=== PATIENT | female | born 1980 | race Caucasian/White ===

== ENCOUNTER → 2018-01-24 | Outpatient (CLI) | payer OTHER ==
--- NOTE | 2018-01-24 12:29 | Diagnostic Imaging Report ---
CLINICAL INDICATION: Patient with enlarged thyroid gland. COMPARISONS: None. FINDINGS: THYROID NODULES: There is a 0.5 cm x 1.0 cm x 0.5 cm heterogeneous, predominantly hypoechoic oval-shaped area seen posterior to the superior aspect of the left thyroid gland. It appears as though this area is outside of the left thyroid gland. There is no significant central Doppler flow. There is a 1.1 cm x 1.2 cm x 0.8 cm lobulated hypoechoic area seen posterior to the medial mid right thyroid gland. There is no significant central Doppler flow. There is no nodule seen within the thyroid gland parenchyma. THYROID GLAND: The thyroid gland has normal size, shape and echogenicity. The right lobe measures 4.1 cm x 1.1 cm x 1.8 cm and the left lobe measures 3.8 cm x 1.0 cm x 1.4 cm in their three dimensions. ISTHMUS: The isthmus is unremarkable and measures grossly 2 mm in thickness. IMPRESSION: 1: There are two heterogeneous hypoechoic areas seen posterior to the right and left thyroid gland which demonstrate no significant central Doppler flow. These areas are nonspecific, but appear nonvascular given that there is no Doppler flow associated with them. These findings may represent complex cystic lesions versus lymphatic malformations/lymphangiomas. Abnormal-appearing parathyroid gland lesions are suspected to be unlikely especially on the right, but left side cannot be completely excluded. Lymph nodes are suspected to be less likely. MRI of the neck soft tissue with and without IV contrast is suggested for further evaluation. 2: There is no definite thyroid gland nodule seen. The thyroid gland is unremarkable as visualized. Dictated by: Dictated on workstation # [id number]
== END ==
LOC: RAD 08:41
PROVIDERS: ATTEND Obstetrics & Gynecology
DX: E04.9 Nontoxic goiter, unspecified (principal)
CPT/HCPCS: 76536

== ENCOUNTER → 2018-01-29 | Outpatient (CLI) | payer OTHER ==
[~2018-01-29] MED LIST: GADOBUTROL 10 MMOL/10 ML (GADAVIST) VIAL IV ONE
--- NOTE | 2018-01-29 17:14 | Diagnostic Imaging Report ---
CLINICAL INDICATION: Patient is feeling thickness in her neck area, trouble swallowing. Patient has recent sonogram of the thyroid gland. EXAM: MRI of the neck performed without and with 8 cc of Gadavist IV contrast. Sequences include axial T1, axial T2, axial T1 fat-sat, coronal T1, coronal T2 fat-sat, sagittal T1 fat-sat, axial T2 fat-sat, coronal T1 fat-sat post IV contrast, axial T1 fat-sat post IV contrast, and sagittal T1 fat-sat post IV contrast. COMPARISON: Ultrasound of the thyroid gland dated 01/24/2018. FINDINGS: Evaluation of the thyroid area of concern posteriorly and bilaterally shows multiple lobulated vascular structures which extend down the neck. These are high on T2 and slightly high on T1, likely related to slow flow which is common to veins. These likely represent venous structures and are likely incidental and inconsequential. There is no other significant abnormality in the region. There is no solid enhancing neck mass seen. The thyroid gland shows no other significant abnormality. The nasopharynx, oropharynx, hypopharynx, and laryngeal soft tissue structures are unremarkable and symmetric. The oral cavity, tongue, and submandibular space is unremarkable. There is no neck lymphadenopathy. The bilateral salivary glands are unremarkable. The visualized neck arterial major vascular structures show no significant abnormality. Limited visualization of the intracranial structures are unremarkable. There is mild mucosal thickening involving both maxillary sinuses and ethmoid sinus. Visualized upper lung felix and mediastinum are grossly unremarkable. There is mild anterior spurring of the cervical spine, which is otherwise unremarkable. IMPRESSION: 1: There are venous structures seen posterior to the bilateral thyroid gland region which likely correlates to the areas of concern on the prior ultrasound. There is no solid mass or other area of concern seen. Thyroid gland shows no abnormality. 2: The remainder of the MRI of the neck soft tissue is unremarkable with no mass, lymphadenopathy, or fluid collections. Dictated by: Dictated on workstation # [id number]
== END ==
LOC: RAD 13:42
PROVIDERS: ATTEND Obstetrics & Gynecology
DX: R94.6 Abnormal results of thyroid function studies (principal); E04.2 Nontoxic multinodular goiter
CPT/HCPCS: 70543

== ENCOUNTER → 2021-08-29 | Outpatient (CLI) | payer OTHER ==
--- NOTE | 2021-08-30 13:09 | Diagnostic Imaging Report ---
Indication: Routine screening. Comparison is made with prior mammogram on the left from 06/18/2013. 2-D and 3-D bilateral screening mammography was performed with CAD. CAD is utilized. The current study was also evaluated with a Computer Aided Detection (CAD) system. Both breasts are heterogeneously dense, limiting the sensitivity of mammography. There are scattered benign calcifications bilaterally. There is a somewhat lobulated but circumscribed lesion lateral to the nipple line on the CC view approximately 8 cm from the nipple. This is not well-seen on the MLO view. Ultrasound would be recommended. Left breast is unremarkable. No spiculated mass or malignant-appearing microcalcification are seen. IMPRESSION: Lobulated circumscribed lesion in the outer right breast 8 cm from the nipple. Further evaluation with ultrasound is recommended. BI-RADS Category 0 ACR BI-RADS Category 0: Incomplete. (Needs additional imaging evaluation). Result letter will be mailed to the patient. Note: At least 10% of breast cancer is not imaged by mammography. Dictated by: Dictated on workstation # [id number]
== END ==
LOC: RAD 10:45
PROVIDERS: ATTEND Obstetrics & Gynecology
DX: Z12.31 Encounter for screening mammogram for malignant neoplasm of breast (principal); N64.9 Disorder of breast, unspecified
CPT/HCPCS: 77063; 77067

== ENCOUNTER → 2021-09-05 | Outpatient (CLI) | payer OTHER ==
--- NOTE | 2021-09-05 17:34 | Diagnostic Imaging Report ---
INDICATION: Right breast density. The study is performed for further evaluation. CORRELATION is made with screening mammogram from 08/29/2021. Sonographic interrogation of all 4 quadrants of the breasts was performed. No solid or cystic mass is seen. No sonographic abnormality is detected. IMPRESSION: BI-RADS Category 3 No sonographic abnormality is identified. The density noted mammographically does have fairly benign features. Even so, follow-up right mammogram in 6 months is recommended to show continued stability. ACR BI-RADS Category 3: Probably benign findings. Result letter will be mailed to the patient. Note: At least 10% of breast cancer is not imaged by mammography. Dictated by: Dictated on workstation # [id number]
== END ==
LOC: RAD 14:15
PROVIDERS: ATTEND Obstetrics & Gynecology
DX: R92.2 Inconclusive mammogram (principal)
CPT/HCPCS: 76641

== ENCOUNTER → 2022-03-06 | Outpatient (CLI) | payer OTHER ==
--- NOTE | 2022-03-06 15:14 | Diagnostic Imaging Report ---
INDICATION: Six-month followup right breast density. COMPARISON: Correlation is made with the prior mammogram from 08/29/2021 as well as prior ultrasound from 09/05/2021. FINDINGS: Sonographic interrogation of the right breast in all 4 quadrants as well as retroareolar region was performed. No sonographic abnormality is seen. No solid or cystic mass is detected. IMPRESSION: No sonographic abnormality is identified. Mammographic followup would be recommended to show continued stability. ACR BI-RADS Category 3: Probably benign findings. Dictated by: Dictated on workstation # [id number]
== END ==
LOC: RAD 14:03
PROVIDERS: ATTEND Nurse Practitioner Women's Health
DX: R92.2 Inconclusive mammogram (principal)
CPT/HCPCS: 76641

== ENCOUNTER → 2022-05-12 | Outpatient (CLI) | payer OTHER ==
--- NOTE | 2022-05-12 11:17 | Diagnostic Imaging Report ---
PROCEDURE: Pelvic comp/transvaginal sonogram. TECHNIQUE: Complete transabdominal and transvaginal pelvic ultrasound was performed. In addition, limited pelvic Doppler was performed. INDICATION: Pelvic pain. FINDINGS: The uterus is anteverted measuring 7.4 x 4.7 x 6.1 cm. The endometrium is 7 mm in thickness. There appears to be an IUD centered in the endometrial canal. No myometrial mass is detected. The right ovary measures 2.6 x 1.5 x 1.8 cm and the left ovary measures 2.5 x 1.6 x 2.2 cm. There is a cyst in the left adnexa adjacent to the left ovary measuring 2.7 x 2.2 x 2.4 cm. There is blood flow to the ovaries. No free fluid is detected. IMPRESSION: 1. The IUD is appropriately centered in the endometrial canal. 2. There is a 2.7 cm simple appearing left adnexal cyst. Dictated by: Dictated on workstation # [id number]
== END ==
LOC: RAD 10:07
PROVIDERS: ATTEND Obstetrics & Gynecology
DX: N83.202 Unspecified ovarian cyst, left side (principal); Z97.5 Presence of (intrauterine) contraceptive device
CPT/HCPCS: 76830; 76856

== ENCOUNTER → 2022-10-11 | Outpatient (CLI) | payer OTHER ==
--- NOTE | 2022-10-11 13:05 | Diagnostic Imaging Report ---
INDICATION: Followup right breast density. COMPARISON: Correlation is made with the prior mammogram from 08/29/2021. TECHNIQUE: 2D and 3D bilateral diagnostic mammography was performed with CAD. FINDINGS: Both breasts are heterogeneously dense, limiting the sensitivity of mammography. The lobulated density noted on the prior mammogram in the right breast just lateral to the nipple line is no longer visualized and most likely represents a resolved cyst. No new masses are identified. There are benign calcifications bilaterally. No malignant-appearing microcalcifications are seen. The axillae are unremarkable. IMPRESSION: No mammographic features suspicious for malignancy. The previously noted nodule has resolved. The patient may return to routine annual screening mammography. ACR BI-RADS Category 2: Benign findings. Result letter will be mailed to the patient. Note: At least 10% of breast cancer is not imaged by mammography. Dictated by: Dictated on workstation # [id number]
== END ==
LOC: RAD 12:29
PROVIDERS: ATTEND Obstetrics & Gynecology
DX: Z12.31 Encounter for screening mammogram for malignant neoplasm of breast (principal); N64.89 Other specified disorders of breast
CPT/HCPCS: 77066; G0279; 77062